=== PATIENT | female | born 1995 | race Caucasian/White ===

== ENCOUNTER 2023-07-20 16:43 | Observation (INO) | payer MEDICAID ==
[~2023-07-20] VITALS: Ht 167.6 cm; Wt 56.9 kg
[2023-07-20 17:27] VITALS: BP 107/49; PULSE 87; RESP 16; TEMP 98.9; O2SAT 97
[2023-07-20] MEDS ORDERED: PREN-129 OR (19:18)
== END 2023-07-20 19:30 | disposition home or self-care (01) ==
LOC: ER 16:43 → LDRP 17:36 → ER 17:36 → LDRP 17:38
PROVIDERS: ADMIT Obstetrics & Gynecology; ATTEND Obstetrics & Gynecology
DX: O60.03 Preterm labor without delivery, third trimester (principal); O26.873 Cervical shortening, third trimester; O99.333 Smoking (tobacco) complicating pregnancy, third trimester; F17.200 Nicotine dependence, unspecified, uncomplicated; O99.323 Drug use complicating pregnancy, third trimester; F12.90 Cannabis use, unspecified, uncomplicated; Z3A.30 30 weeks gestation of pregnancy
CPT/HCPCS: 59025; 76818; 81002; 94760; 99284; G0378

== ENCOUNTER 2023-08-06 07:30 | Observation (INO) | payer MEDICAID ==
[~2023-08-06 07:30] MED LIST: PREN-129 OR
== END 2023-08-06 09:47 | disposition home or self-care (01) ==
LOC: LDRP 08:20
PROVIDERS: ADMIT Obstetrics & Gynecology; ATTEND Obstetrics & Gynecology
DX: O40.3XX0 Polyhydramnios, third trimester, not applicable or unspecified (principal); O60.03 Preterm labor without delivery, third trimester; O34.63 Maternal care for abnormality of vagina, third trimester; N89.8 Other specified noninflammatory disorders of vagina; O99.333 Smoking (tobacco) complicating pregnancy, third trimester; F17.200 Nicotine dependence, unspecified, uncomplicated; O99.323 Drug use complicating pregnancy, third trimester; F12.90 Cannabis use, unspecified, uncomplicated; Z3A.32 32 weeks gestation of pregnancy
CPT/HCPCS: 59025; 76818; 81002; G0378

== ENCOUNTER 2023-08-20 11:00 | Observation (INO) | payer SELFPAY ==
[2023-08-20] MEDS ORDERED: NIF10C PO (12:27)
== END 2023-08-20 12:36 | disposition home or self-care (01) ==
LOC: UNDOADMOB 11:00 → LDRP 11:00 → UNDODISOB 12:36
PROVIDERS: ADMIT Obstetrics & Gynecology; ATTEND Obstetrics & Gynecology
DX: O40.3XX0 Polyhydramnios, third trimester, not applicable or unspecified (principal); O60.03 Preterm labor without delivery, third trimester; Z3A.34 34 weeks gestation of pregnancy
CPT/HCPCS: 59025; 76818; 81002; G0378

== ENCOUNTER 2023-08-24 17:10 | Observation (INO) | payer SELFPAY ==
[~2023-08-24 17:10] MED LIST changes: +NIF10C PO
== END 2023-08-24 18:21 | disposition home or self-care (01) ==
LOC: LDRP 17:10
PROVIDERS: ADMIT Obstetrics & Gynecology; ATTEND Obstetrics & Gynecology
DX: O40.3XX0 Polyhydramnios, third trimester, not applicable or unspecified (principal); O99.333 Smoking (tobacco) complicating pregnancy, third trimester; F17.210 Nicotine dependence, cigarettes, uncomplicated; Z3A.35 35 weeks gestation of pregnancy
CPT/HCPCS: 59025; 76818; 94760; G0378